=== PATIENT | female | born 1995 ===

== ENCOUNTER 2017-09-01 01:04 | Emergency (ER) | payer SELFPAY ==
[2017-09-01 01:24] VITALS: BP 122/69; PULSE 77; RESP 16; TEMP 98.3; O2SAT 100
--- NOTE | 2017-09-01 01:43 | ED PDOC ---
HPI: CCC, URI, Sore Throat Time Seen by Provider: 09/01/17 01:41 Chief Complaint (Nursing): ENT Problem Chief Complaint (Provider): bilateral ear pain/fullness History Per: Patient (22 y/o female here for evaluation of bilateral ear fullness. Denies any fevers/chills. ) Past Medical History Reviewed: Historical Data, Nursing Documentation, Vital Signs Vital Signs: Last Vital Signs Temp 98.3 F 09/01/17 01:22 Pulse 77 09/01/17 01:22 Resp 16 09/01/17 01:22 BP 122/69 09/01/17 01:22 Pulse Ox 100 09/03/17 03:02 - Family History Family History: States: No Known Family Hx - Home Medications Home Medications: Ambulatory Orders Medication Instructions Recorded Ibuprofen [Motrin] 600 mg PO Q8 PRN #21 tab 09/01/17 Pseudoephedrine [Sudafed Tab] 60 mg PO Q6 PRN #24 tab 09/01/17 - Allergies Allergies/Adverse Reactions: Allergies Allergy/AdvReac Type Severity Reaction Status Date / Time No Known Allergies Allergy Verified 09/01/17 01:22 Review of Systems ROS Statement: Except As Marked, All Systems Reviewed And Found Negative ENT: Positive for: Ear Pain Physical Exam - Reviewed Nursing Documentation Reviewed: Yes Vital Signs Reviewed: Yes - Physical Exam Appears: Positive for: Well, Non-toxic, No Acute Distress Head Exam: Positive for: ATRAUMATIC, NORMAL INSPECTION, NORMOCEPHALIC Skin: Positive for: Normal Color, Warm, DRY Eye Exam: Positive for: EOMI, Normal appearance, PERRL ENT: Negative for: Normal ENT Inspection (left ear cerumen impaction; right ear with serous otitis noted .) Neck: Positive for: Normal, Painless ROM Cardiovascular/Chest: Positive for: Regular Rate, Rhythm Respiratory: Positive for: CNT, Normal Breath Sounds Gastrointestinal/Abdominal: Positive for: Normal Exam, Soft Back: Positive for: Normal Inspection Extremity: Positive for: Normal ROM Neurologic/Psych: Positive for: Alert, Oriented - ECG O2 Sat by Pulse Oximetry: 100 - Progress ED Course And Treament: PROCEDURE VERBAL CONSENT PRIOR TO PROCEDURE LEFT EAR IRRIGATED WITH NORMAL SALINE MODERATE CERUMEN REMOVED. TM WNL pseudoephedrine 60mg x1 dose motrin 600mg x 1 dose Disposition - Clinical Impression Clinical Impression: Otitis media with effusion - Patient ED Disposition Is Patient to be Admitted: No - Disposition Referrals: [facility] [place] [Outside] Disposition: Routine/Home Disposition Time: 01:49 Condition: FAIR Prescriptions: Ibuprofen [Motrin] 600 mg PO Q8 PRN #21 tab PRN Reason: Pain, Moderate (4-7) Pseudoephedrine [Sudafed Tab] 60 mg PO Q6 PRN #24 tab PRN Reason: Nasal Congestion Instructions: Serous Otitis Media (DC) Print Language: DIVEHI
== END 2017-09-01 02:50 | disposition home or self-care (01) ==
LOC: H.ER 01:04
DX: H65.90 Unspecified nonsuppurative otitis media, unspecified ear (principal)